=== PATIENT | female | born 2000 | race Caucasian/White ===

== ENCOUNTER 2023-03-09 17:05 | Emergency (ER) | payer OTHER ==
[2023-03-09] MEDS ORDERED: HYDROmorphone 0.5 MG/0.5 ML Syringe IVPUSH ONE (17:26)
[2023-03-09] MEDS ORDERED: Sodium Chloride 0.9% 1,000 ML IV SCH (17:30)
[2023-03-09] MEDS ORDERED: HYDROmorphone 1 MG/ML Syringe IVPUSH ONE (18:02)
[2023-03-09] MEDS ORDERED: Bacitracin Oint 1 GM U/D Packet TOP ONE (18:03)
== END 2023-03-09 19:15 | disposition home or self-care (01) ==
LOC: JP.ED 17:05
DX: T21.21XA Burn of second degree of chest wall, initial encounter (principal); T22.152A Burn of first degree of left shoulder, initial encounter; T22.142A Burn of first degree of left axilla, initial encounter; Z88.1 Allergy status to other antibiotic agents; Z86.16 Personal history of COVID-19; Z72.0 Tobacco use; X12.XXXA Contact with other hot fluids, initial encounter
CPT/HCPCS: 16020; 96361; 96374; 96376; 99283; J1170; J7030